=== PATIENT | male | born 1995 | race African-American/Black ===

== ENCOUNTER 2016-08-07 16:32 | Emergency (ER) | payer SELFPAY ==
[~2016-08-07] VITALS: Ht 188 cm; Wt 94.3 kg
[2016-08-07 20:56] VITALS: BP 126/59
[2016-08-07] MEDS ORDERED: KETOROLAC TROMETH 60MG/2ML VIAL IM ONE (21:15)
== END 2016-08-07 21:52 | disposition home or self-care (01) ==
LOC: ER 16:53
DX: S39.012A Strain of muscle, fascia and tendon of lower back, initial encounter (principal); X50.0XXA Overexertion from strenuous movement or load, initial encounter; Y93.B9 Activity, other involving muscle strengthening exercises; Y99.8 Other external cause status; Y92.89 Other specified places as the place of occurrence of the external cause
CPT/HCPCS: 72100; 96372; 99284; J1885

== ENCOUNTER 2019-03-30 13:25 | Emergency (ER) | payer MEDICAID ==
[~2019-03-30] VITALS: Ht 185.4 cm; Wt 89.8 kg
[2019-03-30 13:49] VITALS: BP 114/67
== END 2019-03-30 14:39 | disposition home or self-care (01) ==
LOC: ER 13:31
DX: S63.501A Unspecified sprain of right wrist, initial encounter (principal); X50.1XXA Overexertion from prolonged static or awkward postures, initial encounter; Y93.79 Activity, other specified sports and athletics; Y92.39 Other specified sports and athletic area as the place of occurrence of the external cause; Y99.8 Other external cause status
CPT/HCPCS: 29125; 73110

== ENCOUNTER 2024-06-21 11:40 | Emergency (ER) | payer MEDICAID ==
[~2024-06-21] VITALS: Ht 185.4 cm; Wt 108.1 kg
[2024-06-21 12:39] VITALS: BP 131/79; PULSE 60; RESP 18; O2SAT 98
[2024-06-21] MEDS: TETRACAINE HCL 0.5% OPTH(EYE) SOLN 4ML RIGHTEYE ONE (13:08)
[2024-06-21] MEDS: FLUORESCEIN SOD OPTH TEST STRIP RIGHTEYE ONE (13:08)
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
== END 2024-06-21 14:00 | disposition home or self-care (01) ==
LOC: ER 11:40
DX: H53.8 Other visual disturbances (principal)

== ENCOUNTER 2024-12-04 17:59 | Emergency (ER) | payer MEDICAID ==
[2024-12-04] MEDS ORDERED: AMOX875T4 PO (21:50)
== END 2024-12-04 18:56 | disposition left against medical advice (07) ==
LOC: ER 18:01
DX: T14.8XXA Other injury of unspecified body region, initial encounter (principal); Z53.21 Procedure and treatment not carried out due to patient leaving prior to being seen by health care provider; W50.3XXA Accidental bite by another person, initial encounter; Y93.89 Activity, other specified; Y92.89 Other specified places as the place of occurrence of the external cause; Y99.8 Other external cause status

== ENCOUNTER 2024-12-04 20:11 | Emergency (ER) | payer SELFPAY ==
[~2024-12-04] VITALS: Ht 182.9 cm; Wt 113.0 kg
[2024-12-04 21:38] VITALS: BP 123/69; PULSE 66; RESP 18; TEMP 99.1; O2SAT 96
[2024-12-04] MEDS ORDERED: AMOX875T4 PO (21:50)
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
[2024-12-04] MEDS: cefTRIAXone SOD 1,000 MG VL IM ONE (21:51)
[2024-12-04] MEDS: TETANUS-DIPTH-ACEL PERTUSSIS 0.5ML SYR Tdap IM ONE (22:01)
== END 2024-12-04 22:07 | disposition home or self-care (01) ==
LOC: ER 20:11
DX: S51.852A Open bite of left forearm, initial encounter (principal); Y04.1XXA Assault by human bite, initial encounter; Y93.89 Activity, other specified; Y92.89 Other specified places as the place of occurrence of the external cause; Y99.0 Civilian activity done for income or pay
CPT/HCPCS: 90471; 90715; 96372; 99284; J0696